=== PATIENT | female | born 1940 | race Caucasian/White ===

== ENCOUNTER 2018-07-10 00:02 | Emergency (ER) | payer MEDICARE ==
[~2018-07-10] VITALS: Ht 154.9 cm; Wt 83.9 kg
--- NOTE | 2018-07-10 00:15 | NUR ---
PT BIB FAMILY FROM HOME C/C SOB SINCE MORNING W/ NON PRODUCTIVE COUGH. -CP,-N/-V. NAD NOTED. PT ON MONITOR IN BED 5 WITH FAMILY AT BEDSIDE. WILL CONTINUE TO MONITOR.
[2018-07-10 00:16] VITALS: BP 171/86
--- NOTE | 2018-07-10 00:21 | NUR ---
RADIOLOGY AT BEDSIDE FOR XRAY
[2018-07-10] MEDS ORDERED: ALBUTEROL FS 2.5 MG/0.5 ML VIAL.NEB NEB ONE (00:30)
--- NOTE | 2018-07-10 00:38 | NUR ---
CALLED RESPIRATORY FOR BREATHING TREATMENT
[2018-07-10] MEDS ORDERED: ALBUTEROL FS 2.5 MG/3 ML VIAL.NEB ONE (00:44)
--- NOTE | 2018-07-10 00:45 | NUR ---
RT AT BEDSIDE
== END 2018-07-10 02:40 | disposition home or self-care (01) ==
LOC: ER 00:02
DX: J06.9 Acute upper respiratory infection, unspecified (principal); I10 Essential (primary) hypertension; Z86.711 Personal history of pulmonary embolism; Z98.890 Other specified postprocedural states
CPT/HCPCS: 71045; 71046; 94640; 99283; A4606

== ENCOUNTER 2018-07-14 10:39 | Emergency (ER) | payer MEDICARE ==
[~2018-07-14] VITALS: Ht 154.9 cm; Wt 86.2 kg
--- NOTE | 2018-07-14 10:50 | NUR ---
PT BIB SELF C/O COUGH x 5 DAYS, -SOB, -CP, PT IS AAOX3, NOT IN RESPIRATORY DISTRESS, KEPT RESTED AND COMFORTABLE, V/S STABLE.
--- NOTE | 2018-07-14 10:58 | NUR ---
SEEN AND EXAMINED BY DR. MCGUIRE. RADIOLOGY AT BEDSIDE FOR XRAY.
--- NOTE | 2018-07-14 11:37 | NUR ---
LABS DRAWNED AND SENT TO LAB.
[2018-07-14 11:40] LABS: BASOPHILS % (AUTO) 1.1 % (0.0-2.0); EOSINOPHILS % (AUTO) 2.3 % (0.0-6.0); HEMATOCRIT 38 % (33-45); HEMOGLOBIN 12.8 g/dL (11.5-14.8); LYMPHOCYTES # (AUTO) 0.8 /CMM (0.8-4.8); LYMPHOCYTES % (AUTO) 29.9 % (20.0-44.0); MEAN CORPUSCULAR HGB CONC 34 g/dl (31.0-36.0); MEAN CORPUSCULAR VOLUME 92 fL (82-100); MONOCYTES # (AUTO) 0.5 /CMM (0.1-1.30); MONOCYTES % (AUTO) 17.5 % (2.0-12.0); NEUTROPHILS # (AUTO) 1.4 /CMM (1.8-8.9); NEUTROPHILS % (AUTO) 49.2 % (43.0-81.0); PLATELET COUNT (AUTO) 175 /CMM (150-450); RED BLOOD CELL COUNT(AUTO) 4.16 MIL/uL (4.0-5.2); WHITE BLOOD COUNT (AUTO) 2.8 K/uL (4.3-11.0)
[2018-07-14 11:49] LABS: CALCIUM, SERUM 8.8 mg/dL (8.5-10.1); CARBON DIOXIDE 27 mmol/L (21-32); CHLORIDE 106 mmol/L (98-107); CREATININE 0.7 mg/dL (0.6-1.3); GLUCOSE 109 mg/dL (74-106); POTASSIUM 3.9 mmol/L (3.5-5.1); SODIUM SERUM 139 mmol/L (136-145); UREA NITROGEN, BLOOD 9 mg/dL (7-18)
[2018-07-14 11:57] LABS: NEUTROPHILS % (MANUAL) 52 (42-76)
[2018-07-14 11:58] LABS: LYMPHOCYTES % (MANUAL) 34 % (16-48); MONOCYTES % (MANUAL) 14 % (0-11.0)
[2018-07-14 12:01] LABS: ALANINE AMINOTRANSFERASE 55 U/L (12-78); ALBUMIN 2.9 g/dL (3.4-5.0); ALKALINE PHOSPHATASE 70 U/L (46-116); ASPARTATE AMINOTRANSFERASE 63 U/L (15-37); B-TYPE NATRIURETIC PEPTIDE 45 PG/ML (0-125); BILIRUBIN,DIRECT 0.1 mg/dL (0.0-0.2); BILIRUBIN,TOTAL 0.3 mg/dL (0.2-1.0); TOTAL PROTEIN, SERUM 5.9 g/dL (6.4-8.2)
[2018-07-14 12:33] VITALS: BP 141/89
--- NOTE | 2018-07-14 12:33 | NUR ---
IV removed. Catheter intact and site benign. Pressure and 4x4 applied to site. No bleeding noted. Patient discharged to home in stable condition. Written and verbal after care instructions given. Patient verbalizes understanding of instruction.
== END 2018-07-14 12:43 | disposition home or self-care (01) ==
LOC: ER 10:39
DX: R05 Cough (principal); I10 Essential (primary) hypertension; Z86.711 Personal history of pulmonary embolism; Z98.890 Other specified postprocedural states
CPT/HCPCS: 36415; 71045-TC; 80048-TC; 80076-TC; 83880; 84484-TC; 85025-TC; 85730-TC

== ENCOUNTER 2018-10-14 07:56 | Emergency (ER) | payer MEDICARE ==
[~2018-10-14] VITALS: Ht 154.9 cm; Wt 90.3 kg
--- NOTE | 2018-10-14 08:17 | NUR ---
PT WALKED INTO EMERGENCY ROOM WITH C/C COUGH WITH CONGESTION X 2 MONTHS, "TOO MUCH PHLEGM AT NIGHT" ACCOMPANIED BY SPOUSE PTM ALERT WITH ORIENTATION X 3 RT CALLED FOR BREATHING TREATMENT
[2018-10-14] MEDS ORDERED: ALBUTEROL FS 2.5 MG/3 ML VIAL.NEB ONE (08:23)
[2018-10-14] MEDS ORDERED: IPRATROPIUM NEB FS 0.5 MG/2.5 ML AMPUL.NEB ONE (08:23)
[2018-10-14] MEDS ORDERED: predniSONE 20 MG TABLET PO ONE (08:30)
[2018-10-14] MEDS ORDERED: IPRATROPIUM NEB FS 0.5 MG/2.5 ML AMPUL.NEB NEB ONE (08:30)
[2018-10-14] MEDS ORDERED: ALBUTEROL FS 2.5 MG/3 ML VIAL.NEB NEB ONE (08:30)
[2018-10-14 08:50] VITALS: BP 143/89
== END 2018-10-14 08:58 | disposition home or self-care (01) ==
LOC: ER 07:56
DX: J20.9 Acute bronchitis, unspecified (principal); Z86.711 Personal history of pulmonary embolism; Z98.890 Other specified postprocedural states

== ENCOUNTER 2019-05-17 08:14 | Emergency (ER) | payer MEDICARE ==
[~2019-05-17] VITALS: Ht 154.9 cm; Wt 89.4 kg
--- NOTE | 2019-05-17 08:18 | NUR ---
AT BEDSIDE FOR EVAL.
[2019-05-17 08:19] VITALS: BP 152/89
[2019-05-17] MEDS ORDERED: NORT50CA PO (08:38)
[2019-05-17] MEDS ORDERED: PRAV40TA3 PO (08:38)
[2019-05-17] MEDS ORDERED: LISI40TA4 PO (08:38)
[2019-05-17] MEDS ORDERED: RIVA10TA PO (08:38)
[2019-05-17] MEDS ORDERED: BIOT25008 PO (08:38)
[2019-05-17] MEDS ORDERED: DONE10TA44 PO (08:38)
[2019-05-17] MEDS ORDERED: ROPI1TAB4 PO (08:38)
[2019-05-17] MEDS ORDERED: GABA-534 PO (08:38)
[2019-05-17] MEDS ORDERED: MEMA5TAB15 PO (08:38)
[2019-05-17] MEDS ORDERED: RISP0.2515 PO (08:38)
[2019-05-17] MEDS ORDERED: LEVO125T8 PO (08:38)
--- NOTE | 2019-05-17 08:45 | NUR ---
TYREL HONG AT BEDSIDE FOR XRAY
--- NOTE | 2019-05-17 09:46 | NUR ---
Patient discharged to home in stable condition. Written and verbal after care instructions given. Patient verbalizes understanding of instruction.
== END 2019-05-17 09:46 | disposition home or self-care (01) ==
LOC: ER 08:17
DX: R05 Cough (principal); I10 Essential (primary) hypertension; Z86.711 Personal history of pulmonary embolism; Z98.890 Other specified postprocedural states; Z79.899 Other long term (current) drug therapy
CPT/HCPCS: 71045-TC

== ENCOUNTER 2019-06-05 11:02 | Emergency (ER) | payer MEDICARE ==
[~2019-06-05] VITALS: Ht 154.9 cm; Wt 89.4 kg
[~2019-06-05 11:02] MED LIST: BIOT25008 PO; DONE10TA44 PO; GABA-534 PO; LEVO125T8 PO; LISI40TA4 PO; MEMA5TAB42 PO; NORT50CA PO; PRAV40TA3 PO; RISP0.2515 PO; RIVA10TA PO; ROPI1TAB6 PO
[2019-06-05 11:23] VITALS: BP 169/85
== END 2019-06-05 11:42 | disposition home or self-care (01) ==
LOC: ER 11:05
DX: J20.9 Acute bronchitis, unspecified (principal); I10 Essential (primary) hypertension; Z86.711 Personal history of pulmonary embolism; Z98.890 Other specified postprocedural states; Z79.899 Other long term (current) drug therapy

== ENCOUNTER 2019-06-10 16:57 | Emergency (ER) | payer MEDICARE ==
[~2019-06-10] VITALS: Ht 154.9 cm; Wt 91.6 kg
[2019-06-10 17:38] LABS: APPEARANCE,URINE Cloudy (CLEAR); BILIRUBIN,URINE Negative (NEGATIVE); BLOOD, URINE Small Ery/uL (NEGATIVE); COLOR,URINE Yellow (YELLOW); KETONES,URINE Negative (NEGATIVE); LEUKOCYTE ESTERASE ,URINE Small (NEGATIVE); NITRITE, URINE Negative (NEGATIVE); PROTEIN,URINE Negative (NEGATIVE); UGLUCOSE Negative (NEGATIVE); UROBILINOGEN,URINE 0.2 EU/dL (0.2)
--- NOTE | 2019-06-10 17:40 | NUR ---
DYSURIA, BLADDER PAIN X 2 DAYS. PATIENT A/OX4, ASSISTED TO RESTROOM, URINE SAMPLE PROVIDED BY PATIENT.
[2019-06-10 17:57] LABS: BACTERIA,URINE 1+ /HPF (None Seen); MUCUS,URINE Few /LPF (None Seen); SQUAMOUS EPITHELIAL CELL,UR Few /HPF (None Seen)
--- NOTE | 2019-06-10 18:35 | NUR ---
PATIENT LEFT WITHOUT DISCHARGE INSTRUCTIONS, PATIENT TOLD ONE OF THE STAFF SHE'S IN A HURRY TO LEAVE. DR. HERNANDEZ MADE AWARE.
[2019-06-10 18:36] VITALS: BP 129/80
== END 2019-06-10 18:36 | disposition home or self-care (01) ==
LOC: ER 17:00
DX: N30.00 Acute cystitis without hematuria (principal); I10 Essential (primary) hypertension; Z86.711 Personal history of pulmonary embolism; Z98.890 Other specified postprocedural states; Z79.899 Other long term (current) drug therapy
CPT/HCPCS: 81000-TC; 87086-TC; 87186-TC

== ENCOUNTER 2019-06-11 15:14 | Emergency (ER) | payer MEDICARE ==
[~2019-06-11] VITALS: Ht 154.9 cm; Wt 88.5 kg
[~2019-06-11 15:14] MED LIST changes: +ROPI1TAB4 PO; -ROPI1TAB6 PO
[2019-06-11 15:53] VITALS: BP 146/82
== END 2019-06-11 16:12 | disposition home or self-care (01) ==
LOC: ER 15:18
DX: N39.0 Urinary tract infection, site not specified (principal); I10 Essential (primary) hypertension; J44.9 Chronic obstructive pulmonary disease, unspecified; Z98.890 Other specified postprocedural states; Z86.711 Personal history of pulmonary embolism; Z79.899 Other long term (current) drug therapy

== ENCOUNTER 2019-11-18 08:51 | Emergency (ER) | payer MEDICARE ==
[~2019-11-18] VITALS: Ht 152.4 cm; Wt 77.1 kg
[~2019-11-18 08:51] MED LIST changes: -ROPI1TAB4 PO; +ROPI1TAB6 PO
--- NOTE | 2019-11-18 09:02 | NUR ---
patient came in to the er c/o "Up all night peeing. Concerned that I may have diabetes". On room air, breathing evenly and unlabored. connected to the monitor and pulse ox. kept comfortable, will continue to monitor accordingly.
[2019-11-18 09:31] LABS: BASOPHILS % (AUTO) 0.6 % (0.0-2.0); EOSINOPHILS % (AUTO) 0.9 % (0.0-6.0); HEMATOCRIT 44 % (33-45); HEMOGLOBIN 14.5 g/dL (11.5-14.8); MEAN CORPUSCULAR HGB CONC 33 g/dl (31.0-36.0); MEAN CORPUSCULAR VOLUME 97 fL (82-100); MONOCYTES # (AUTO) 0.5 /CMM (0.1-1.30); MONOCYTES % (AUTO) 10.6 % (2.0-12.0); NEUTROPHILS # (AUTO) 3.5 /CMM (1.8-8.9); NEUTROPHILS % (AUTO) 67.9 % (43.0-81.0); PLATELET COUNT (AUTO) 199 /CMM (150-450); RED BLOOD CELL COUNT(AUTO) 4.55 MIL/uL (4.0-5.2); WHITE BLOOD COUNT (AUTO) 5.2 K/uL (4.3-11.0)
[2019-11-18 09:41] LABS: CALCIUM, SERUM 9.3 mg/dL (8.5-10.1); CREATININE 0.9 mg/dL (0.6-1.3); POTASSIUM 3.7 mmol/L (3.5-5.1)
--- NOTE | 2019-11-18 10:03 | NUR ---
urine collected and sent to lab
[2019-11-18 10:06] LABS: APPEARANCE,URINE Clear (CLEAR); BILIRUBIN,URINE Negative (NEGATIVE); BLOOD, URINE Moderate Ery/uL (NEGATIVE); COLOR,URINE Yellow (YELLOW); KETONES,URINE Negative (NEGATIVE); LEUKOCYTE ESTERASE ,URINE Negative (NEGATIVE); NITRITE, URINE Negative (NEGATIVE); PROTEIN,URINE Trace mg/dl (NEGATIVE); UGLUCOSE Negative (NEGATIVE); UROBILINOGEN,URINE 0.2 EU/dL (0.2)
[2019-11-18 10:09] LABS: BACTERIA,URINE Few /HPF (None Seen); SQUAMOUS EPITHELIAL CELL,UR Few /HPF (None Seen); WBC,URINE 0-2 /HPF (0-3)
[2019-11-18 10:23] VITALS: BP 144/72
--- NOTE | 2019-11-18 10:23 | NUR ---
Patient discharged to home in stable condition. Written and verbal after care instructions given. Patient verbalizes understanding of instruction.
== END 2019-11-18 10:24 | disposition home or self-care (01) ==
LOC: ER 08:51
DX: R35.8 Other polyuria (principal); R35.0 Frequency of micturition; I10 Essential (primary) hypertension; Z86.711 Personal history of pulmonary embolism; Z98.890 Other specified postprocedural states
CPT/HCPCS: 36415; 80048-TC; 81000-TC; 82962-TC; 85025-TC

== ENCOUNTER 2020-09-03 19:59 | Inpatient (IN) | payer MEDICARE ==
[~2020-09-03] VITALS: Ht 154.9 cm; Wt 78.0 kg
[~2020-09-03 19:59] MED LIST changes: +LISI40TA13 PO; -LISI40TA4 PO
--- NOTE | 2020-09-03 20:00 | NUR ---
GLORIA (SON) CONTACT INFORMATION:
--- NOTE | 2020-09-03 20:04 | NUR ---
PATIENT AMBULATED TO THE RESTROOM WITH A STEADY GAIT.
--- NOTE | 2020-09-03 20:13 | NUR ---
PATIENT CAME TO ER BED 9 BIB SON C/O "CONFUSED". PATIENT STATES THAT SHE IS CONFUSED AND CANNOT REMEMBER WHAT THE CURRENT YEAR IS AND THE MEDICATIONS THAT SHE TAKES AT HOME. PATIENT STATES THAT SHE LAST FELT THAT SHE WAS NORMAL WAS THIS AFTERNOON. PATIENT IS AAOX3. DENIES SOB. BREATHING EVENLY AND UNLABORED ON ROOM AIR. CONNECTED TO THE MONITOR.
[2020-09-03] MEDS ORDERED: IV NS 0.9% 1,000 ML BAG IV ONE (20:30)
--- NOTE | 2020-09-03 20:32 | NUR ---
URINE AND BLOOD COLLECTED AND SENT TO THE LAB.
--- NOTE | 2020-09-03 20:45 | NUR ---
PT TAKEN TO CT VIA RALAN.
[2020-09-03 20:48] LABS: BASOPHILS % (AUTO) 0.9 % (0.0-2.0); EOSINOPHILS % (AUTO) 3.3 % (0.0-6.0); HEMATOCRIT 40 % (33-45); HEMOGLOBIN 13.5 g/dL (11.5-14.8); LYMPHOCYTES # (AUTO) 2.2 /CMM (0.8-4.8); LYMPHOCYTES % (AUTO) 41.1 % (20.0-44.0); MEAN CORPUSCULAR HGB CONC 34 g/dl (31.0-36.0); MEAN CORPUSCULAR VOLUME 116 fL (82-100); MONOCYTES # (AUTO) 0.4 /CMM (0.1-1.30); MONOCYTES % (AUTO) 8.1 % (2.0-12.0); NEUTROPHILS # (AUTO) 2.5 /CMM (1.8-8.9); NEUTROPHILS % (AUTO) 46.6 % (43.0-81.0); PLATELET COUNT (AUTO) 172 /CMM (150-450); RED BLOOD CELL COUNT(AUTO) 3.41 MIL/uL (4.0-5.2); WHITE BLOOD COUNT (AUTO) 5.4 K/uL (4.3-11.0)
[2020-09-03 20:51] LABS: BILIRUBIN,URINE NEGATIVE (NEGATIVE); COLOR,URINE YELLOW (YELLOW); LEUKOCYTE ESTERASE ,URINE MODERATE (NEGATIVE); NITRITE, URINE NEGATIVE (NEGATIVE); PH,URINE 5.5 (5.0-8.0); PROTEIN,URINE NEGATIVE (NEGATIVE); UGLUCOSE NEGATIVE (NEGATIVE); UROBILINOGEN,URINE 0.2 EU/dL (0.2)
--- NOTE | 2020-09-03 20:57 | NUR ---
RETURNED FROM CT
[2020-09-03 21:07] LABS: CALCIUM, SERUM 9.3 mg/dL (8.5-10.1); CARBON DIOXIDE 25 mmol/L (21-32); CHLORIDE 105 mmol/L (98-107); CREATININE 0.8 mg/dL (0.6-1.3); GLUCOSE 89 mg/dL (74-106); POTASSIUM 3.8 mmol/L (3.5-5.1); SODIUM SERUM 141 mmol/L (136-145); UREA NITROGEN, BLOOD 9 mg/dL (7-18)
[2020-09-03 21:08] LABS: BACTERIA,URINE 3+ /HPF (None Seen); SQUAMOUS EPITHELIAL CELL,UR 0-2 /HPF (None Seen)
[2020-09-03 21:11] LABS: EOSINOPHILS % (MANUAL) 4 % (0-4); LYMPHOCYTES % (MANUAL) 44 % (16-48); MONOCYTES % (MANUAL) 6 % (0-11.0); NEUTROPHILS % (MANUAL) 46 (42-76)
[2020-09-03 21:16] LABS: CHOLESTEROL 202 mg/dL (<200); HDL CHOLESTEROL 93 mg/dL (40-60); LDL 84 mg/dL (0-99); TRIGLYCERIDES 93 mg/dL (30-150)
--- NOTE | 2020-09-03 21:16 | NUR ---
CODE STROKE CALLED PER DR MEDINA.
[2020-09-03] MEDS ORDERED: IOHEXOL-350 100 ML VIAL IV ONE (22:15)
[2020-09-03] MEDS ORDERED: CT SWABBABLE VALVE TRANS SET 1 EA INFUS.SET MC ONE (22:15)
[2020-09-03] MEDS ORDERED: IV NS 0.9% 250 ML IV ONE (22:15)
--- NOTE | 2020-09-03 22:15 | NUR ---
PATIENT TO CT VIA RNEY AGAIN.
--- NOTE | 2020-09-03 22:25 | NUR ---
PATIENT RETURNED FROM CT.
[2020-09-03] MEDS ORDERED: CEFTRIAXONE 1GM BAG (ER ONLY) 50 ML IV ONE ×2 (22:30→22:32)
[2020-09-03] MEDS ORDERED: Thiamine 100 MG in IV D5W 50 ML IV ONE (22:30)
[2020-09-03] MEDS ORDERED: Thiamine 100 MG/ML VIAL ONE (22:33)
--- NOTE | 2020-09-03 22:38 | NUR ---
328-2 IS THE ROOM THE PT WILL BE ADMITTED TO PER RN SALES TEAM RECRUITER.
--- NOTE | 2020-09-03 22:50 | NUR ---
REPORT GIVEN TO PETAR CHONG FOR DAYAN.
[2020-09-03 23:00] VITALS: BP 148/90
--- NOTE | 2020-09-03 23:04 | NUR ---
TAKEN UP TO ASSIGNED ROOM
--- NOTE | 2020-09-03 23:45 | NUR ---
TELE/CONSULTANT INTERNSHIP NOTE RECEIVED PATIENT FROM ER VIA NHAN AND 2 STAFF MEMBERS. PATIENT ACCOMPANIED TO ROOM 323-1. PATIENT IS ALERT AND ORIENTED X 3. ABLE TO MAKE NEEDS KNOWN. NO COMPLAINTS OF PAIN AT THIS TIME. RESPIRATIONS EVEN AND UNLABORED. PERRLA WITH POSITIVE ROM TO ALL FOUR EXTREMITIES. IV ACCESS TO RIGHT AC #20G INTACT AND PATENT. CONTINUES ON IV ABX. LACTIC ACID LEVEL DOWN TRENDING. PATIENT TO HAVE LABS DRAWN THIS AM. TELE MONITOR READING SR HR 80. CALL LIGHT WITHIN REACH. ASPIRATION, FALL AND SAFETY PRECAUTIONS MAINTAINED. WILL CONTINUE TO MONITOR.
[2020-09-04] VITALS: BP 143/76
[2020-09-04] LABS: BILIRUBIN,DIRECT 0.1 mg/dL (0.0-0.2); BILIRUBIN,TOTAL 0.4 mg/dL (0.2-1.0)
[2020-09-04] MEDS ORDERED: IV NS 0.9% 1,000 ML IV PRN (02:30)
[2020-09-04] MEDS ORDERED: ENOXAPARIN SODIUM 40 MG/0.4 ML DISP.SYRIN SQ SCH (02:30)
[2020-09-04] MEDS ORDERED: Z GUARD REMEDY 2 OZ OINT TP PRN (02:30)
[2020-09-04] MEDS ORDERED: ACETAMINOPHEN 325 MG TABLET PO PRN (02:30)
[2020-09-04] MEDS ORDERED: ONDANSETRON HCL/PF 4 MG/2 ML VIAL IVP PRN (02:30)
--- NOTE | 2020-09-04 06:30 | NUR ---
TELE/RN CLOSING NOTE PATIENT CURRENTLY RESTING IN BED. AWAKE, ALERT AND ORIENTED X 3. ABLE TO MAKE NEEDS KNOWN. NO COMPLAINTS OF PAIN AT THIS TIME. IV ACCESS TO RIGHT AC #20G INTACT AND PATENT. CONTINUES ON IV NS @ 75ML/HR. CONTINUES ON IV ABX. PATIENT CAN AMBULATE WITH ASSISTANCE. CALL LIGHT WITHIN REACH. ASPIRATION, FALL AND SAFETY PRECAUTIONS MAINTAINED. WILL ENDORSE PLAN OF CARE TO ONCOMING SHIFT.
[2020-09-04 06:55] LABS: BASOPHILS % (AUTO) 0.6 % (0.0-2.0); EOSINOPHILS % (AUTO) 2.1 % (0.0-6.0); HEMATOCRIT 40 % (33-45); HEMOGLOBIN 13.4 g/dL (11.5-14.8); LYMPHOCYTES # (AUTO) 1.7 /CMM (0.8-4.8); LYMPHOCYTES % (AUTO) 26.2 % (20.0-44.0); MEAN CORPUSCULAR HGB CONC 34 g/dl (31.0-36.0); MEAN CORPUSCULAR VOLUME 117 fL (82-100); MONOCYTES # (AUTO) 0.6 /CMM (0.1-1.30); MONOCYTES % (AUTO) 9.7 % (2.0-12.0); NEUTROPHILS % (AUTO) 61.4 % (43.0-81.0); PLATELET COUNT (AUTO) 176 /CMM (150-450); RED BLOOD CELL COUNT(AUTO) 3.38 MIL/uL (4.0-5.2); WHITE BLOOD COUNT (AUTO) 6.4 K/uL (4.3-11.0)
[2020-09-04 07:45] LABS: CALCIUM, SERUM 9.2 mg/dL (8.5-10.1); CREATININE 0.6 mg/dL (0.6-1.3); POTASSIUM 3.9 mmol/L (3.5-5.1)
[2020-09-04] MEDS ORDERED: LOSA100T31 PO (07:51)
[2020-09-04] MEDS ORDERED: ESCI10TA PO (07:51)
[2020-09-04] MEDS ORDERED: TAMS-12 PO (07:51)
[2020-09-04] MEDS ORDERED: AMLO-212 PO (07:51)
[2020-09-04] MEDS ORDERED: LORA10TA7 PO (07:51)
[2020-09-04] MEDS ORDERED: OMEP20CA15 PO (07:51)
[2020-09-04] MEDS ORDERED: OXYB10TA30 PO (07:51)
[2020-09-04 07:54] LABS: THYROID STIMULATING HORMONE 1.183 uIU/mL (0.358-3.74)
[2020-09-04 08:00] VITALS: BP 169/83
--- NOTE | 2020-09-04 08:00 | NUR ---
RN OPENING NOTE RECEIVED PATIENT IN BED AO X 2-3, NOTICED TREMOR HANDS DENIES PAIN OR DISCOMFORT, ABLE TO RESPONDS ALL STIMULI. RESPIRATORY EVEN AND UNLABORED ON ROOM AIR, SKIN IS WARM TO TOUCH KEEP CLEAN/DRY, INTACT IV SITE. KEPT ELEVATED HOB FOR ASPIRATION PRECAUTION AND ENSURE AIRWAY, ALSO LOWEST BED POSITION FIR SAFETY. CALL LIGHT WITHIN REACH, WILL CONTINUE TO MONITOR.
--- NOTE | 2020-09-04 08:30 | NUR ---
Patient seen by MD also swallow evaluation done, and pass, will start eat BKF.
[2020-09-04] MEDS ORDERED: GABAPENTIN 400 MG CAPSULE PO SCH (09:00)
[2020-09-04] MEDS: MEMANTINE HCL 5 MG TABLET PO SCH ×2 (09:32→21:20)
[2020-09-04] MEDS: ASPIRIN EC 81 MG TABLET.DR PO SCH (09:32)
[2020-09-04] MEDS: THIAMINE HCL 100 MG TABLET PO SCH (09:32)
[2020-09-04] MEDS: LISINOPRIL (20MG) 20 MG TABLET PO SCH (09:33)
[2020-09-04] MEDS: LEVOTHYROXINE SODIUM 125 MCG TABLET PO SCH (09:34)
[2020-09-04] MEDS ORDERED: LOPERAMIDE HCL (2 MG CAP) 2 MG CAPSULE PO PRN (14:00)
--- NOTE | 2020-09-04 14:33 | NUR ---
Business Analysis Consultant Consult: patient services manager consult requested for stroke. Patient is a 80-year-old, white female. SW met with the patient in her hospital room on the [facility] surgical unit. Patient was alert and oriented x4. Patient is well-groomed and calm. Patient is currently living at home ([address] [place] [id number]; [phone]) with her son, Damion Johnston [phone] and her [id number]. Patient stated that she was brought to the hospital by her son after she was unable to speak. Patient stated that this is her first stroke episode. SW discussed social support with the patient and patient stated that she has adequate support from her son Damion and her [id number]. SW asked the patient about any sources of income and the patient stated that she receives Social Security Income. Patient stated she is ambulatory and is independent with her ADLs but mentioned that her family assists her as needed. SW asked the patient about her history of mental illness and patient stated that she has Depression. Patient is currently taking psychiatric medication. Patient denies any current hallucinations or delusions. Patient denies any current suicidal or homicidal ideations. SW completed a PHQ-9 assessment and discussed resources with the patient. Patient scored 4 on the PHQ-9. SW presented a resource to the patient, Empowerment After Stroke. Patient accepted the packet, and thanked SW for the resource. PLAN: SW spoke to the patient about her discharge plan. Patient stated that she will be returning home to [address] [place] [id number]. Patient stated that her son, Damion will be able to pick her up from the hospital upon discharge. SW will remain available to the patient, as needed.
[2020-09-04 16:00] VITALS: BP 144/79
[2020-09-04] MEDS ORDERED: RIVAROXABAN 10 MG TABLET PO SCH (18:00)
[2020-09-04] MEDS ORDERED: risperiDONE 1 MG TABLET PO SCH (18:00)
--- NOTE | 2020-09-04 18:03 | NUR ---
RN CLOSING NOTE PATIENT IN BED RESTING, DENIES DISTRESS OR PAIN. PATIENT ABLE TO SWALLOW FOODS AND MEDICATIONS WITHOUT CHOCKING OR COUGHING. SKIN IS WARM TO TOUCH, KEEP CLEAN/DRY, INTACT IV SITE. RESPIRATORY EVEN AND UNLABORED ON ROOM AIR, O2SAT 95%. CALL LIGHT WITHIN REACH, KEPT ELEVATED HOB FOR ENSURE AIRWAY AND ASPIRATION PRECAUTION, ALSO LOWEST BED POSITION FOR SAFETY. WILL ENDORSE MONEY EXAMINER.
--- NOTE | 2020-09-04 18:23 | NUR ---
LATE ENTRY-PATIENT REFUSED SCD.
[2020-09-04 19:00] VITALS: BP 140/67
--- NOTE | 2020-09-04 19:07 | NUR ---
PATIENT REFUSED iv FLUID.
[2020-09-04 20:00] VITALS: BP 140/67
[2020-09-04] MEDS ORDERED: NORTRIPTYLINE HCL 25 MG CAPSULE PO SCH (22:00)
[2020-09-04] MEDS ORDERED: DONEPEZIL 5 MG TABLET PO SCH (22:00)
[2020-09-04] MEDS ORDERED: ATORVASTATIN 10 MG TABLET PO SCH ×2 (22:00)
[2020-09-04] MEDS ORDERED: CEFTRIAXONE 1 G in IV D5W 50 ML IV SCH (23:00)
[2020-09-05] VITALS: BP 143/76
[2020-09-05 04:00] VITALS: BP 124/71
--- NOTE | 2020-09-05 06:40 | NUR ---
supervisor modern languages closing notes Pt is resting in bed comfortably. Pt is alert and orientedX3-4 and anxious. Respiration is normal in room air with O2 sat is 95%. No SOB. No S/S of distress noted. Tele monitor showed SR Hr at 60. VS is stable. Afebrile. Routine meds were given as ordered. IV site at RAC# 20 is clean, intact and SL. Pt refused IV fluids. Explained risks and benefits. Offered multiple times. Pt keep refusing. Kept Pt clean, dry and comfortable. Safety precautions is maintained. Bed at low position, brakes locked, side rails upX2, hob elevated and call light is within reach. Will endorse to morning nurse for DAYAN.
--- NOTE | 2020-09-05 07:41 | NUR ---
IRRIGATOR VALVE PIPE OPENING NOTES Received Pt from morning nurse. Pt is resting in bed comfortably. Pt is alert and orientedX3-4 and anxious. Respiration is normal in room air. No SOB. No S/S of distress noted. Tele monitor showed SR with BBB Hr at 78. IV site at RAC# 20 is clean, intact and SL. Pt refused IV fluids. Explained risks and benefits. Offered multiple times. Pt keep refusing. Pt stated " No IV fluids!!" Safety precautions is maintained. Bed at low position, brakes locked, side rails upX2, hob elevated and call light is within reach. Pt refused to have bed alarm on. Explained risks and benefits. Pt keep refusing and stated "No!!" with a loud voice. Will continue to monitor.
[2020-09-05 08:00] VITALS: BP 135/78
[2020-09-05] MEDS: MEMANTINE HCL 5 MG TABLET PO SCH (08:28)
[2020-09-05] MEDS: THIAMINE HCL 100 MG TABLET PO SCH (08:28)
[2020-09-05] MEDS: LEVOTHYROXINE SODIUM 125 MCG TABLET PO SCH (08:28)
[2020-09-05] MEDS: ASPIRIN EC 81 MG TABLET.DR PO SCH (08:28)
[2020-09-05] MEDS: LISINOPRIL (20MG) 20 MG TABLET PO SCH (08:30)
[2020-09-05] MEDS ORDERED: ASPI-1420 PO (11:17)
[2020-09-05] MEDS ORDERED: ATOR10TA PO (11:17)
[2020-09-05] MEDS ORDERED: CIPR-262 PO (14:54)
[2020-09-05] MEDS ORDERED: CIPROFLOXACIN HCL 500 MG TABLET PO ONE (15:30)
--- NOTE | 2020-09-05 15:52 | NUR ---
DISTILLERY LABORERLEAD ASSISTANT MANAGER NOTES PT AWAKE, ALERT , RESPONSIVE, AMBULATES IN ROOM WITH STEADY GAIT, NO C/O PAIN OR DISTRESS TOLERATES CURRENT DIET NO SWALLOWING PROBLEM NOTED SEEN BY DR NJ, DISCHARGE ORDER GIVEN , DISCHRAGE AND MED INSTRUCTIONS PROVIDED TO PATIENT, VERBALIZED UNDERSTANDING, BELONGINGS ACCOUNTED FOR , NEW PRESCRIPTION SENT BY MD ELECTRONICALLY TO PTS OWN PHARMACY. ASSISTED TO HOSPITAL LOBBY VIA WHEELCHAIR , LEFT VIA PRIVATE CAR IN STABLE CONDITION
[2020-09-05 16:00] VITALS: BP 147/79
== END 2020-09-05 15:50 | disposition home health service (06) | DRG 64 ==
LOC: ER 19:59 → TELE 22:39
PROVIDERS: ADMIT Internal Medicine; ATTEND Nurse Practitioner Acute Care
DX: I63.9 Cerebral infarction, unspecified (principal); G93.41 Metabolic encephalopathy; N39.0 Urinary tract infection, site not specified; E87.2 Acidosis; F10.129 Alcohol abuse with intoxication, unspecified; Y90.6 Blood alcohol level of 120-199 mg/100 ml; I10 Essential (primary) hypertension; Z20.822 Contact with and (suspected) exposure to COVID-19; Z98.890 Other specified postprocedural states; Z86.718 Personal history of other venous thrombosis and embolism; Z86.73 Personal history of transient ischemic attack (TIA), and cerebral infarction without residual deficits; Z86.711 Personal history of pulmonary embolism; M06.9 Rheumatoid arthritis, unspecified; J43.9 Emphysema, unspecified; B96.89 Other specified bacterial agents as the cause of diseases classified elsewhere
CPT/HCPCS: 36415; 70450-TC; 70496-TC; 70498-TC; 71045-TC; 80048-TC; 80061-TC; 81001; 82247-TC; 82248-TC; 83605-TC; 84443-TC; 84484-TC; 85025-TC; 85730-TC; 87040-TC; 87081-TC; 87086-TC; 87186-TC; 92507-TC; 92521; 92526; 92611-TC; 93307-TC; 97112-TC; 97116-TC; 97530-TC; C9803; G0378; G0480; J0696; J3411; J7030; J7050; J7060; Q9967

== ENCOUNTER 2022-02-09 16:24 | Inpatient (IN) | payer MEDICARE ==
[~2022-02-09] VITALS: Ht 157.5 cm; Wt 60.3 kg
[~2022-02-09 16:24] MED LIST changes: +AMLO-212 PO; +ASPI-1420 PO; +ATOR10TA PO; +CIPR-262 PO; +ESCI10TA PO; -LISI40TA13 PO; +LORA10TA7 PO; +LOSA100T31 PO; -NORT50CA PO; +OMEP20CA15 PO; +OXYB10TA30 PO; +TAMS-12 PO
--- NOTE | 2022-02-09 16:26 | NUR ---
TO ER BED 10, BIBSON "I NOTICED SHE'S LITTLE OUT OF IT, TROUBLE TALKING & WALKING, LITTLE WEAKER" LKWT: 2200 LAST NIGHT, AAOX2, BREATHING EVEN AND NON LABORED, CONNECTED TO MONITOR
[2022-02-09] MEDS ORDERED: MEMA1CAP3 PO (16:47)
--- NOTE | 2022-02-09 16:50 | NUR ---
DR LUCIA AT BEDSIDE FOR EVAL
--- NOTE | 2022-02-09 16:53 | NUR ---
COVID SWAB DONE AND SENT TO LAB
--- NOTE | 2022-02-09 16:53 | NUR ---
ACTIVATED CODE STROKE, TELEMED REQUEST SENT
[2022-02-09] MEDS ORDERED: IOHEXOL-350 100 ML VIAL IV ONE (16:56)
[2022-02-09] MEDS ORDERED: CT SWABBABLE VALVE TRANS SET 1 EA INFUS.SET MC ONE (16:57)
[2022-02-09 17:09] LABS: BASOPHILS % (AUTO) 0.4 % (0.0-2.0); EOSINOPHILS % (AUTO) 0.4 % (0.0-6.0); HEMATOCRIT 40 % (33-45); HEMOGLOBIN 13.4 g/dL (11.5-14.8); LYMPHOCYTES # (AUTO) 0.3 K/uL (0.8-4.8); LYMPHOCYTES % (AUTO) 8.5 % (20.0-44.0); MEAN CORPUSCULAR HGB CONC 33 g/dl (31.0-36.0); MEAN CORPUSCULAR VOLUME 112 fL (82-100); MONOCYTES # (AUTO) 0.4 K/uL (0.1-1.30); MONOCYTES % (AUTO) 10.3 % (2.0-12.0); NEUTROPHILS # (AUTO) 3.1 K/uL (1.8-8.9); NEUTROPHILS % (AUTO) 80.4 % (43.0-81.0); PLATELET COUNT (AUTO) 133 K/uL (150-450); RED BLOOD CELL COUNT(AUTO) 3.58 MIL/uL (4.0-5.2); WHITE BLOOD COUNT (AUTO) 3.8 K/uL (4.3-11.0)
[2022-02-09 17:13] LABS: CALCIUM, SERUM 9.2 mg/dL (8.5-10.1); CARBON DIOXIDE 28 mmol/L (21-32); CHLORIDE 106 mmol/L (98-107); CREATININE 0.8 mg/dL (0.6-1.3); GLUCOSE 109 mg/dL (74-106); POTASSIUM 4.1 mmol/L (3.5-5.1); SODIUM SERUM 140 mmol/L (136-145); UREA NITROGEN, BLOOD 13 mg/dL (7-18)
[2022-02-09] MEDS: risperiDONE 1 MG TABLET PO SCH (18:00)
[2022-02-09 18:48] LABS: THYROID STIMULATING HORMONE 0.021 uIU/mL (0.358-3.74)
--- NOTE | 2022-02-09 21:10 | NUR ---
URINE COLLECTED AND SENT TO LAB
[2022-02-09] MEDS ORDERED: IV NS 0.9% 1,000 ML IV PRN (21:30)
[2022-02-09] MEDS ORDERED: risperiDONE 0.25 MG TABLET PO SCH (21:30)
[2022-02-09] MEDS ORDERED: ACETAMINOPHEN 325 MG TABLET PO PRN (21:30)
[2022-02-09] MEDS ORDERED: ONDANSETRON HCL/PF 4 MG/2 ML VIAL IVP PRN (21:30)
--- NOTE | 2022-02-09 21:36 | NUR ---
REPORT GIVEN TO KENDRICK Quesada RN FOR DAYAN
[2022-02-09 21:37] LABS: BILIRUBIN,URINE NEGATIVE (NEGATIVE); COLOR,URINE YELLOW (YELLOW); LEUKOCYTE ESTERASE ,URINE TRACE (NEGATIVE); NITRITE, URINE NEGATIVE (NEGATIVE); PH,URINE 7.5 (5.0-8.0); PROTEIN,URINE NEGATIVE (NEGATIVE); UGLUCOSE NEGATIVE (NEGATIVE)
--- NOTE | 2022-02-09 21:40 | NUR ---
MEDICAL ASSISTANT AT PT'S BEDSIDE
[2022-02-09 21:47] LABS: WBC,URINE 21-50 /HPF (0-3)
[2022-02-09 21:48] LABS: BACTERIA,URINE 1+ /HPF (None Seen); SQUAMOUS EPITHELIAL CELL,UR Few /HPF (None Seen)
[2022-02-09 22:00] VITALS: BP 135/59
[2022-02-09 22:00] LABS: CALCIUM, SERUM 8.8 mg/dL (8.5-10.1); CARBON DIOXIDE 28 mmol/L (21-32); CHLORIDE 107 mmol/L (98-107); CREATININE 0.7 mg/dL (0.6-1.3); GLUCOSE 106 mg/dL (74-106); SODIUM SERUM 139 mmol/L (136-145); UREA NITROGEN, BLOOD 12 mg/dL (7-18)
[2022-02-09] MEDS ORDERED: PRAVASTATIN SODIUM 20 MG TABLET PO SCH (22:00)
[2022-02-09] MEDS ORDERED: OMEPRAZOLE 20 MG CAPSULE.DR PO SCH (22:00)
[2022-02-09 22:13] LABS: ALANINE AMINOTRANSFERASE 19 U/L (12-78); ALBUMIN 2.9 g/dL (3.4-5.0); ALKALINE PHOSPHATASE 71 U/L (46-116); ASPARTATE AMINOTRANSFERASE 13 U/L (15-37); BILIRUBIN,TOTAL 0.9 mg/dL (0.2-1.0); THYROID STIMULATING HORMONE 0.026 uIU/mL (0.358-3.74); TOTAL PROTEIN, SERUM 5.3 g/dL (6.4-8.2)
[2022-02-09] MEDS: TAMSULOSIN 0.4 MG CAP.SR.24H PO SCH (22:21)
[2022-02-09] MEDS: GABAPENTIN 300 MG CAPSULE PO SCH (22:21)
[2022-02-09] MEDS: RIVAROXABAN 10 MG TABLET PO SCH (22:22)
[2022-02-09] MEDS: LORATADINE 10 MG TABLET PO SCH (22:28)
[2022-02-09 22:30] VITALS: BP 135/59
--- NOTE | 2022-02-09 22:35 | NUR ---
RN NOTE PT ARRIVED TO UNIT VIA GURNEY. PT A/O X2-3 ABLE TO MAKE NEEDS KNOWN.PT NOTED WITH VERY SMALL FACIAL DROOP ON THE RIGHT SIDE OF THE FACE. PT. PT ON ROOM AIR TOLERATING WELL. PT PASSED NURSING SWALLOW EVALUATION NO DIFFICULTY SWALLOWING. PT NOTED WITH IV ACCESS ON THE RAC #20G SALINE LOCKED FLUSHING WELL. PT PLACED ON TELE MONITOR READING SR. PT ORIENTED TO ROOM AND UNIT. TABLE WITHIN REACH. TABLE WITHIN REACH. BED ALARM ON BED IN LOWEST POSITION HOB ELEVATED FOR SAFETY. ALL DUE MEDS GIVEN.
[2022-02-09] MEDS ORDERED: CEFTRIAXONE 1 G VIAL ONE (23:43)
[2022-02-09] MEDS: CEFTRIAXONE 1 G in IV D5W 50 ML IV SCH (23:46)
[2022-02-10] VITALS: BP 135/64
[2022-02-10 03:44] LABS: BASOPHILS % (AUTO) 0.7 % (0.0-2.0); EOSINOPHILS % (AUTO) 2.7 % (0.0-6.0); HEMATOCRIT 33 % (33-45); HEMOGLOBIN 11.3 g/dL (11.5-14.8); LYMPHOCYTES # (AUTO) 0.6 K/uL (0.8-4.8); LYMPHOCYTES % (AUTO) 22.9 % (20.0-44.0); MEAN CORPUSCULAR HGB CONC 34 g/dl (31.0-36.0); MEAN CORPUSCULAR VOLUME 112 fL (82-100); MONOCYTES # (AUTO) 0.4 K/uL (0.1-1.30); NEUTROPHILS # (AUTO) 1.6 K/uL (1.8-8.9); NEUTROPHILS % (AUTO) 57.7 % (43.0-81.0); PLATELET COUNT (AUTO) 99 K/uL (150-450); RED BLOOD CELL COUNT(AUTO) 2.94 MIL/uL (4.0-5.2); WHITE BLOOD COUNT (AUTO) 2.7 K/uL (4.3-11.0)
[2022-02-10 04:00] VITALS: BP 104/49
[2022-02-10 04:01] LABS: CALCIUM, SERUM 8.6 mg/dL (8.5-10.1); CARBON DIOXIDE 27 mmol/L (21-32); CHLORIDE 107 mmol/L (98-107); CREATININE 0.6 mg/dL (0.6-1.3); GLUCOSE 97 mg/dL (74-106); PHOSPHORUS 3.3 mg/dL (2.5-4.9); POTASSIUM 3.8 mmol/L (3.5-5.1); SODIUM SERUM 138 mmol/L (136-145); UREA NITROGEN, BLOOD 10 mg/dL (7-18)
[2022-02-10 04:03] LABS: CHOLESTEROL 120 mg/dL (<200); HDL CHOLESTEROL 52 mg/dL (40-60); LDL 55 mg/dL (0-99); TRIGLYCERIDES 59 mg/dL (30-150)
--- NOTE | 2022-02-10 05:56 | NUR ---
TEXT DR. GOODMAN FOR MRI APPROVAL.
--- NOTE | 2022-02-10 06:47 | NUR ---
RN NOTE PT ARRIVED TO UNIT VIA GURNEY. PT A/O X2-3 ABLE TO MAKE NEEDS KNOWN.PT NOTED WITH VERY SMALL FACIAL DROOP ON THE RIGHT SIDE OF THE FACE. PT. PT ON ROOM AIR TOLERATING WELL. PT PASSED NURSING SWALLOW EVALUATION NO DIFFICULTY SWALLOWING. PT NOTED WITH IV ACCESS ON THE RAC #20G SALINE LOCKED FLUSHING WELL. PT PLACED ON TELE MONITOR READING SR. TABLE WITHIN REACH. BED ALARM ON BED IN LOWEST POSITION HOB ELEVATED FOR SAFETY.
--- NOTE | 2022-02-10 07:44 | NUR ---
CUSTOM SEAMSTRESS OPENING NOTE Patient in bed, asleep. A/O x 2-3. On room air, breathing evenly and unlabored. No SOB or s/s of distress noted. IV access on RAC #18, intact and patent. On tele monitoring showing sinus bradycardia with BBB. Safety precautions in place: bed in low, locked position; siderails up x 2; call light within reach. Will continue to monitor.
[2022-02-10 08:47] VITALS: BP 112/60
[2022-02-10] MEDS: ASPIRIN EC 81 MG TABLET.DR PO SCH (08:55)
[2022-02-10] MEDS: OXYBUTYNIN CHLORIDE ER 5 MG TAB PO SCH (08:55)
[2022-02-10] MEDS: LOSARTAN POTASSIUM 50 MG TABLET PO SCH (08:56)
[2022-02-10] MEDS: AMLODIPINE BESYLATE 5 MG TABLET PO SCH (08:56)
[2022-02-10] MEDS: ESCITALOPRAM OXALATE (10 MG) 10 MG TABLET PO SCH (08:56)
[2022-02-10] MEDS ORDERED: Medication Not On Formulary EA (Memantine HCl/Donepezil HCl (Namzaric 28 mg-10 mg Capsul PO SCH (09:00)
[2022-02-10 12:00] VITALS: BP 94/49
[2022-02-10 16:16] VITALS: BP 91/46
[2022-02-10] MEDS: MEMANTINE HCL 5 MG TABLET PO SCH (17:14)
[2022-02-10] MEDS: risperiDONE 1 MG TABLET PO SCH (17:14)
[2022-02-10] MEDS: RIVAROXABAN 10 MG TABLET PO SCH (18:00)
--- NOTE | 2022-02-10 18:04 | NUR ---
RN NOTE Patient's platelet is 99, Dr. Robison notified and ordered to hold Xarelto scheduled for 1800.
--- NOTE | 2022-02-10 19:19 | NUR ---
PODIATRIC MEDICINE DOCTOR CLOSING NOTE Patient in bed, resting. A/O x 2, able to make needs known. On room air, breathing evenly and unlabored. No SOB or s/s of distress noted. IV access on RAC #18, intact and patent. On tele monitoring showing sinus bradycardia with BBB. All needs attended to. Due meds given. Safety precautions in place: bed in low, locked position; siderails up x 2; call light within reach. Will endorse to shift lab technician nurse for DAYAN.
[2022-02-10 20:33] VITALS: BP 122/59
[2022-02-10] MEDS: LORATADINE 10 MG TABLET PO SCH (21:35)
[2022-02-10] MEDS: GABAPENTIN 300 MG CAPSULE PO SCH (21:36)
[2022-02-10] MEDS: TAMSULOSIN 0.4 MG CAP.SR.24H PO SCH (21:36)
[2022-02-10] MEDS ORDERED: PANTOPRAZOLE 40 MG TABLET.DR PO SCH (22:00)
[2022-02-10] MEDS ORDERED: DONEPEZIL 5 MG TABLET PO SCH (22:00)
[2022-02-10] MEDS ORDERED: ATORVASTATIN 10 MG TABLET PO SCH (22:00)
[2022-02-10] MEDS ORDERED: ropiniROLE 0.5 MG TABLET PO SCH (22:00)
[2022-02-10] MEDS: CEFTRIAXONE 1 G in IV D5W 50 ML IV SCH (23:19)
[2022-02-11 00:31] VITALS: BP 113/54
[2022-02-11 04:00] VITALS: BP 111/63
--- NOTE | 2022-02-11 06:44 | NUR ---
METAL INSPECTOR OPENING NOTE Patient in bed, resting. A/O x 2, able to make needs known. On room air, breathing evenly and unlabored. No SOB or s/s of distress noted. IV access on RAC #18, intact and patent. On tele monitoring showing sinus bradycardia with BBB. All needs attended to. Due meds given. Safety precautions in place: bed in low, locked position; siderails up x 2; call light within reach. Will endorse to day shift nurse for DAYAN. Addendum: 02/11/22 at 0646 by KENDRICK CORRIGAN RN closing note
[2022-02-11 07:17] LABS: HEMATOCRIT 33 % (33-45); HEMOGLOBIN 11.1 g/dL (11.5-14.8); LYMPHOCYTES # (AUTO) 1.1 K/uL (0.8-4.8); LYMPHOCYTES % (AUTO) 31.5 % (20.0-44.0); MEAN CORPUSCULAR HGB CONC 34 g/dl (31.0-36.0); MEAN CORPUSCULAR VOLUME 112 fL (82-100); MONOCYTES # (AUTO) 0.6 K/uL (0.1-1.30); MONOCYTES % (AUTO) 16.9 % (2.0-12.0); NEUTROPHILS # (AUTO) 1.3 K/uL (1.8-8.9); NEUTROPHILS % (AUTO) 39.6 % (43.0-81.0); PLATELET COUNT (AUTO) 110 K/uL (150-450); RED BLOOD CELL COUNT(AUTO) 2.94 MIL/uL (4.0-5.2); WHITE BLOOD COUNT (AUTO) 3.3 K/uL (4.3-11.0)
--- NOTE | 2022-02-11 07:50 | NUR ---
TEL RN OPENING NOTE PATIENT RECEIVED IN BED AND SLEEPING. A/O X3. NO S/SX OF DISTRESS OR PAIN. IV ACCESS TO RAC INTACT AND PATENT WITH NO S/SX OF BLEEDING OR INFILTRATION. NO SOB OR RESPIRATORY DISTRESS OBSERVED OR REPORTED. SAFETY MEASURES IN PLACE, BED LOW AND LOCKED. SIDERAIL UP X2 AND CALL LIGHT WITHIN REACH. WILL CONT TO MONITOR.
[2022-02-11 07:53] LABS: CALCIUM, SERUM 8.3 mg/dL (8.5-10.1); CREATININE 0.7 mg/dL (0.6-1.3); MAGNESIUM 1.9 mg/dL (1.8-2.4); PHOSPHORUS 3.8 mg/dL (2.5-4.9); POTASSIUM 3.5 mmol/L (3.5-5.1)
[2022-02-11 08:00] VITALS: BP 107/65
[2022-02-11 09:20] LABS: EOSINOPHILS % (MANUAL) 11 % (0-4); LYMPHOCYTES % (MANUAL) 31 % (16-48); MONOCYTES % (MANUAL) 15 % (0-11.0); NEUTROPHILS % (MANUAL) 43 (42-76)
[2022-02-11] MEDS: ASPIRIN EC 81 MG TABLET.DR PO SCH (09:23)
[2022-02-11] MEDS: ESCITALOPRAM OXALATE (10 MG) 10 MG TABLET PO SCH (09:23)
[2022-02-11] MEDS: OXYBUTYNIN CHLORIDE ER 5 MG TAB PO SCH (09:27)
[2022-02-11] MEDS: MEMANTINE HCL 5 MG TABLET PO SCH (09:27)
[2022-02-11] MEDS: LOSARTAN POTASSIUM 50 MG TABLET PO SCH (09:32)
[2022-02-11] MEDS: AMLODIPINE BESYLATE 5 MG TABLET PO SCH (09:33)
[2022-02-11 12:00] VITALS: BP 118/66
[2022-02-11] MEDS ORDERED: CEPH500T PO (14:46)
[2022-02-11] MEDS ORDERED: RISP1TAB7 PO (14:46)
[2022-02-11] MEDS ORDERED: LEVE500T9 PO (14:46)
[2022-02-11 16:00] VITALS: BP 110/65
--- NOTE | 2022-02-11 17:08 | NUR ---
DOORPERSON OR LUGGAGE PORTER NOTE PATIENT DISCHARGED FROM FACILITY IN WHEELCHAIR VIA SON @ 1700. ALL BELONGINGS WITH PATIENT UPON LEAVE.
[2022-02-11] MEDS ORDERED: LEVETIRACETAM (250 MG) 250 MG TABLET PO SCH (21:00)
== END 2022-02-11 16:55 | disposition home or self-care (01) | DRG 69 ==
LOC: ER 16:26 → TELE 21:12
PROVIDERS: ADMIT Nurse Practitioner Acute Care; ATTEND Student in an Organized Health Care Education/Training Program
DX: G45.9 Transient cerebral ischemic attack, unspecified (principal); G93.41 Metabolic encephalopathy; N39.0 Urinary tract infection, site not specified; E87.2 Acidosis; Z86.73 Personal history of transient ischemic attack (TIA), and cerebral infarction without residual deficits; E03.9 Hypothyroidism, unspecified; M06.9 Rheumatoid arthritis, unspecified; I10 Essential (primary) hypertension; Z86.711 Personal history of pulmonary embolism; J43.9 Emphysema, unspecified; Z98.890 Other specified postprocedural states; Z79.82 Long term (current) use of aspirin; Z79.01 Long term (current) use of anticoagulants; Z79.899 Other long term (current) drug therapy; B96.89 Other specified bacterial agents as the cause of diseases classified elsewhere; Z86.718 Personal history of other venous thrombosis and embolism; R56.9 Unspecified convulsions
CPT/HCPCS: 36415; 70450-TC; 70496-TC; 70498-TC; 70551-TC; 71045-TC; 80048-TC; 80053-TC; 80061-TC; 81001; 82140-TC; 82962-TC; 83735-TC; 83880; 84100-TC; 84443-TC; 84484-TC; 85025-TC; 85652-TC; 85730-TC; 87081-TC; 87086-TC; 92526; 92611-TC; 97116-TC; 97530-TC; C9803; G0378; G0480; J0696; J7030; J7050; J7060; Q9967

== ENCOUNTER 2024-11-15 13:01 | Emergency (ER) | payer MEDICARE ==
[~2024-11-15] VITALS: Ht 152.4 cm; Wt 77.1 kg
[~2024-11-15 13:01] MED LIST changes: -ATOR10TA PO; -BIOT25008 PO; +CEPH500T PO; -CIPR-262 PO; -DONE10TA44 PO; +LEVE500T9 PO; +MEMA1CAP3 PO; -MEMA5TAB42 PO; +RISP1TAB7 PO
[2024-11-15 13:09] VITALS: TEMP 98.4
[2024-11-15 13:27] LABS: APPEARANCE,URINE CLEAR (CLEAR); BILIRUBIN,URINE NEGATIVE (NEGATIVE); BLOOD, URINE TRACE-INTA Ery/uL (NEGATIVE); COLOR,URINE DARK YELLOW (YELLOW); KETONES,URINE TRACE mg/dL (NEGATIVE); LEUKOCYTE ESTERASE ,URINE 2+ (NEGATIVE); NITRITE, URINE NEGATIVE (NEGATIVE); PH,URINE 6.5 (5.0-8.0); PROTEIN,URINE 1+ mg/dl (NEGATIVE); UGLUCOSE NEGATIVE (NEGATIVE)
[2024-11-15] MEDS ORDERED: CEPH-570 PO (13:33)
[2024-11-15 14:07] LABS: ADD URINE CULTURE YES; BACTERIA,URINE Rare /HPF (None Seen); SQUAMOUS EPITHELIAL CELL,UR Few /HPF (None Seen); WBC,URINE TOO NUMEROUS TO COUN /HPF (0-3)
[2024-11-15 14:20] VITALS: BP 120/70; O2SAT 97
== END 2024-11-15 13:45 | disposition home or self-care (01) ==
LOC: ER 13:10
DX: N39.0 Urinary tract infection, site not specified (principal); J43.9 Emphysema, unspecified; I10 Essential (primary) hypertension; Z79.01 Long term (current) use of anticoagulants; Z79.82 Long term (current) use of aspirin; Z79.899 Other long term (current) drug therapy
CPT/HCPCS: 81001; 87086-TC

== ENCOUNTER 2024-11-21 13:43 | Emergency (ER) | payer MEDICARE ==
[~2024-11-21] VITALS: Ht 157.5 cm; Wt 77.1 kg
[~2024-11-21 13:43] MED LIST changes: +CEPH-570 PO
[2024-11-21 14:02] VITALS: TEMP 97.5
[2024-11-21 14:24] LABS: BASOPHILS % (AUTO) 0.6 % (0.0-2.0); EOSINOPHILS % (AUTO) 0.4 % (0.0-6.0); HEMATOCRIT 44 % (33-45); HEMOGLOBIN 14.9 g/dL (11.5-14.8); LYMPHOCYTES # (AUTO) 1.7 K/uL (0.8-4.8); MEAN CORPUSCULAR HEMOGLOBIN 31 PG (26.0-33.0); MEAN CORPUSCULAR HGB CONC 34 g/dl (31.0-36.0); MEAN CORPUSCULAR VOLUME 92 fL (82-100); MONOCYTES # (AUTO) 0.7 K/uL (0.1-1.30); MONOCYTES % (AUTO) 9.4 % (2.0-12.0); NEUTROPHILS # (AUTO) 5.4 K/uL (1.8-8.9); NEUTROPHILS % (AUTO) 67.6 % (43.0-81.0); PLATELET COUNT (AUTO) 187 K/uL (150-450); RED CELL DISTRIBUTION WIDTH 15.4 % (11.5-15.0); WHITE BLOOD COUNT (AUTO) 7.9 K/uL (4.3-11.0)
[2024-11-21 14:31] LABS: CALCIUM, SERUM 9.1 mg/dL (8.5-10.1); CREATININE 0.9 mg/dL (0.6-1.3); POTASSIUM 3.5 mmol/L (3.5-5.1)
[2024-11-21 14:34] LABS: PHOSPHORUS 2.8 mg/dL (2.5-4.9)
[2024-11-21] MEDS ORDERED: DONEPEZIL 5 MG TABLET ONE (15:45)
[2024-11-21] MEDS ORDERED: MEMANTINE HCL 5 MG TABLET ONE (15:45)
[2024-11-21] MEDS: MEMANTINE HCL 5 MG TABLET PO SCH (15:48)
[2024-11-21] MEDS: DONEPEZIL 5 MG TABLET PO SCH (15:48)
[2024-11-21 18:57] VITALS: BP 134/68; O2SAT 96
== END 2024-11-21 17:10 | disposition home or self-care (01) ==
LOC: ER 13:54
DX: G24.01 Drug induced subacute dyskinesia (principal); I10 Essential (primary) hypertension; F41.9 Anxiety disorder, unspecified; J43.9 Emphysema, unspecified; Z79.01 Long term (current) use of anticoagulants; Z79.82 Long term (current) use of aspirin; Z79.899 Other long term (current) drug therapy; Z87.440 Personal history of urinary (tract) infections
CPT/HCPCS: 36415; 80048-TC; 83735-TC; 84100-TC; 85025-TC

== ENCOUNTER 2024-12-05 11:43 | Emergency (ER) | payer MEDICARE ==
[~2024-12-05] VITALS: Ht 165.1 cm; Wt 72.6 kg
[2024-12-05 11:56] VITALS: BP 138/80; TEMP 98.3; O2SAT 96
== END 2024-12-05 12:00 | disposition home or self-care (01) ==
LOC: ER 11:43
DX: S02.5XXA Fracture of tooth (traumatic), initial encounter for closed fracture (principal); I10 Essential (primary) hypertension; J43.9 Emphysema, unspecified; F41.9 Anxiety disorder, unspecified; Z79.01 Long term (current) use of anticoagulants; Z79.82 Long term (current) use of aspirin; Z79.899 Other long term (current) drug therapy; X58.XXXA Exposure to other specified factors, initial encounter; Y93.89 Activity, other specified; Y92.89 Other specified places as the place of occurrence of the external cause; Y99.8 Other external cause status